=== PATIENT | female | born 1990 | race Two or more races ===

== ENCOUNTER 2023-12-20 09:02 | Emergency (ER) | payer SELFPAY ==
[~2023-12-20] VITALS: Ht 160 cm; Wt 72.6 kg
[2023-12-20 09:24] VITALS: BP 122/74; TEMP 98.8
[2023-12-20] MEDS ORDERED: AMOXICILLIN TRIHYDRATE 250 MG CAPSULE ONE (09:57)
[2023-12-20] MEDS ORDERED: IBUPROFEN 600 MG TABLET ONE (09:57)
[2023-12-20] MEDS: AMOXICILLIN TRIHYDRATE 500 MG CAPSULE PO ONE (09:59)
[2023-12-20] MEDS: IBUPROFEN 600 MG TABLET PO ONE (10:00)
[2023-12-20] MEDS ORDERED: AMOX500C2 PO (10:17)
[2023-12-20 10:45] VITALS: O2SAT 100
== END 2023-12-20 10:46 | disposition home or self-care (01) ==
LOC: ER 09:06
DX: J02.9 Acute pharyngitis, unspecified (principal)